=== PATIENT | female | born 1945 | race Caucasian/White ===

== ENCOUNTER 2022-12-31 12:17 | Outpatient (CLI) | payer MEDICARE, BC, SELFPAY | END 2022-12-31 12:18 | disposition home or self-care (01) | LOC: NFLDREF 01-04 10:15 | PROVIDERS: PCP Family Medicine; Referring Provider Family Medicine; Visit Provider Family Medicine | DX: R30.0 Dysuria (principal); N39.0 Urinary tract infection, site not specified | CPT/HCPCS: 87086; 87186 ==

== ENCOUNTER 2024-05-10 10:31 | Outpatient (CLI) | payer MEDICARE, BC, SELFPAY ==
--- OUTSIDE RECORDS SUMMARY | 2024-05-10 23:39 | XMS_ITS | Clinical Summary ---
Author Organization [facility] Address [place], [place] [address] Care Team Providers Care Compositor Apprentice Name Role Phone Andrea Eckert MD Unavailable Nereyda Baldwin MD Unavailable + Trinidad Hughes DO Primary Care Provider [phone] Allergies No known active allergies Medications Medication Sig Dispensed Refills Start Date End Date Status MULTIVITAMIN TABIndications:Routine general medical examination at a health care facility take 1 tablet by oral route once daily with food 0 01/30/2008 Active omega-3 fatty acids-vitamin E (FISH OIL) 1,000 mg Cap Take 1,000 capsules by mouth once daily. 0 10/11/2010 Active Cranberry 400 mg capsule Take by mouth. 0 03/14/2015 Active coenzyme q10 (COQ-10) 100 mg cap Take 1 capsule by mouth once daily. 0 01/16/2016 Active White Petrolatum-Mineral Oil (REFRESH P.M.) 57.3-42.5 % ophthalmic ointment Place 1 Strip into the eye(s). 0 03/17/2018 Active Red Yeast Rice Extract 600 mg capIndications:Pure hypercholesterolemia Take 1 Capsule (600 mg) by mouth once daily. 0 07/24/2021 Active hydrocortisone 1 % creamIndications:Facial dermatitis Apply topically to affected area(s) 2 times daily. 0 01/30/2022 Active scopolamine 1mg over 3 days (TRANSDERM SCOP) patchIndications:Motion sickness, subsequent encounter Apply 1 Patch on dry, clean, hairless skin every 72 hours. 10 Patch 05/09/2023 Active Active Problems Problem Noted Date Diagnosed Date Vitamin D deficiency 10/18/2011 Age-related osteoporosis wit hout current pathological fracture 09/16/2009 Colon polyp 2009 Overview: Colonoscopy 01/2009 polyp repeat in 5 years Colonoscopy 08/2014 diverticulosis repeat in 5 years Colonoscopy 10/2019 incomplete colon due to diverticuli, recommend CT colonography CT colon 10/2019 diverticulosis, recommend repeat CT colon every 5 years ABNORMAL STRESS ECHO 02/10/08 02/12/2008 Overview: Exercise echo w/ severe hypo in anterior distribution w/ EF decreasing from 55%- 45% Later eval was false (+) Pure hypercholesterolemia 01/30/2008 Overview: With high HDL Last lipids 02/03/08: TC 203, TG 56, HDL 85, LDL 107 Resolved Problems Problem Noted Date Diagnosed Date Resolved Date Chest pain, unspecified 02/12/200807/29 Disorder of bone and cartilage, unspecified 01/30/2008 09/16/2009 Overview: osteopenia Enthesopathy of ankle and tarsus, unspecified 08/26/20 07 08/17/2009 Immunizations Name Administration Dates Next Due AMB INFLUENZA IIV3 (AGE 65+ YRS) PF (Flu Clinic Only) 09/02/2019 Amb Influenza, Inact (High-d ose) (Flu Clinic Only) 09/04/2016,08/25/2015 Amb Influenza, Inactivated A IIV4 (Age 65+ Years) Preserv Free 08/15/2020 COVID-19 vaccine ([place] NTreMail 30mcg/0.3mL) PF, MDV 01/17/2021,12/27/2020 DT (Age < 7 years) 05/22/1999 Influenza, High-dose Inactivated 07/26/2014 Influenza, IIV3 (Age >=3 years) 08/11/2012,08/13,09/06/2000 Influenza, Inactivated AIIV4 (Age 65+ Years) Preserv Free 07/24/2021 Influenza, Inactivated IIV3 (Age 65+ Years) Preserv Free 09/01/2018,08/26/2017 Pneumococcal Poly,23-Valent (Pneumovax) 10/28/19 15,11/05/2013 Pneumococcal conj 13-Valent (Prevnar 13) 016 Tdap 08/17/2009 Zoster (Shingrix-RZV, recombinant) 04/01/2019, Zoster (Zostavax-ZVL, live) 01/04/2012 Family History Medical History Relation Name Comments GI Disease Brother 1 Abdirahman cancerous polyp s Coronary artery disease Brother 2 Moreno S/p stenting Cancer-prostate Father d 88 yo from pneumonia Other Father Alzheimer's Heart Disease Maternal Grandfather [place] Other Maternal Grandmother dementi a also TB Other Mother d 64 noncancero us brain tumor Stroke Paternal Grandmother Cancer-breast No Family History Cancer-ovarian No Family History Relation Name Status Comments Brother 1 Abdirahman Brother 2 Moreno Alive Father Maternal Grandfather Maternal Grandmother Mother Paternal Grandmother Social History Tobacco Use Types Packs/Day Years Used Date Smoking Tobacco: Never Smokeless Tobacco: Never Tobacco Cessation:Counseling Given: Yes Alcohol Use Standard Drinks/Week Comments No 0 (1 standard drink = 0.6 oz pur e alcohol) PHQ-2 Answer Date Recorded PHQ-2 TOTAL SCORE 0 02/19/2023 Social Connections Answer Date Recorded Frequency of Communication with Friends and Fami ly Not on file 02/25/2024 Financial Resource Strain Answer Date R ecorded Difficulty of Paying Living Expenses 3 02/19/2023 Difficulty of Paying Living Expenses Not on file 02/19/2023 Food Insecurity Answer Date Recorded Worried About Running Out of Food in the Last Ye ar 1 02/19/2023 Transportation Needs Answer Date Record ed Lack of Transportation (Medical) 1 02/19/2023 Housing Stability Answer Date Recorded Unable to Pay for Housing in the Last Year 1 02/19/2023 Sex and Gender Information Value Date Recorded Sex Assigned at Not on file Gender Identity Not on file Sexual Orientation Not on file Obstetrics History Para Term AB IAB SAB Ectopic Multiple Livin g Live Births 5 5 5 0 0 0 0 0 0 5 Date Outcome GA Total Labor Labor/2nd/3rd Weight Sex Type Anes PTL Cassandra A1 A5 Name Clin Term Term Term Term Term Last Filed Vital Signs Vital Sign Reading Time Taken Comments Blood Pressure 115/75 12/02/2023 10:38 AM COMPUTING ARCHITECT Pulse 98 12/02/2023 10:38 AM COMPUTING ARCHITECT Temperature 36.6 ??C (97.8 ??F) 12/02/2023 10:[address] Respiratory Rate 16 02/12/2008 2:30 PM CDT Oxygen Saturation 97% 12/02/2023 10:38 AM COMPUTING ARCHITECT Inhaled Oxygen Concentration - - Weight 75.1 kg (165 lb 8 oz) 12/02/2023 10:38 AM COMPUTING ARCHITECT Height 163.7 cm (5' 4.45) 02/19/2023 2:05 PM CD T Body Mass Index 28.01 02/19/2023 2:05 PM CDT Plan of Treatment Health Maintenance Due Date Last Done Comments Tetanus booster 08/17/2019 08/17/2009 COVID-19 vaccine series ( season) 2023 01/17/2021, 12/27/2020 BMI (ht and wt on same day) for age 18+ 02/20/2024 02/19/2023, 01/30/2022, 07/24/2021, Additional history exists Depression screening for age 12+ 02/20/2024 02/19/2023, 07/24/2021, 05/10/2021, Additional history exists Medicare Wellness for age 65+ 02/20/2024, 07/24/2021, 03/17/2018, Additional history exists Influenza for age 65+ 06/28/2024 07/24/2021 , 08/15/2020, 09/02/2019, Additional history exists Tdap Completed 08/17/2009 Hepatitis C screening for ag e 18-79 Completed 11/05/2013 Pneumococcal series for age 65+ Completed 03/22/2016, 10/28/2014, 11/05/2013 DEXA/DXA scan for age 65+ Completed 2017, 03/22/2016, 11/06/2013, Additional history exists Zoster (shingles) series for age 50+ Completed 04/01/2019, 12/26/2018, 01/04/2012 CT Colonography for age 45-75 Discontinued 11/04/2019, 11/04/2019 Procedures Procedure Name Priority Date/Time Associated Diagnosis Comments CT ABDOMEN PELVIS COLONOGRAPHY DIAGNOSTIC W Routine 11/04/2019 2:59 PM COMPUTING ARCHITECT History of colon polyps Diverticulosis of large intestine without hemorrhage Procedure and treatment not carried out for other reasons XR DXA BONE DENSITY 2 SITES AXIAL Routine 03/17/2018 1:10 PM CDT Age-related osteoporosis without current pathological fracture ANTI HCV Routine 11/05/2013 9:32 AM COMPUTING ARCHITECT Need for hepatitis C screening test from Last 3 Months or Most Recently Relevant to Health Maintenance Results * CT ABDOMEN PELVIS COLONOGRAPHY DIAGNOSTIC W (11/04/2019 2:59 PM COMPUTING ARCHITECT) Anatomical Region Laterality Modality Abdomen Other 11/04/2019 2:59 PM COMPUTING ARCHITECT Narrative 11/05/2019 8:14 AM COMPUTING ARCHITECT EXAM DATE: ? 11/04/2019 EXAM: CT COLONOGRAPHY LOCATION: [facility] DATE/TIME: 11/04/2019 3:30 PM INDICATION: Surveillance. Personal history of adenomatous polyps. Incomplete colonoscopy due to narrowing of the colon in association with diverticular disease. Colonoscopy reached the sigmoid colon. COMPARISON: Colonoscopy report from earlier today. TECHNIQUE: Prone and supine CT abdomen and pelvis with air insufflation per rectum, with image postprocessing. Oral contrast. Dose reduction techniques were used. CONTRAST: ISOVUE 250 LOT [id number] FINDINGS: COLON: Sigmoid colonic diverticulosis. Otherwise negative. No colonic mass or polyp. No colonic perforation. All segments well seen. C Score: C1 Note: CT colonography is not intended for the detection of diminutive polyps (i.e. polyps less than or equal to 5mm), the presence of which will not likely change person of the patient. ADDITIONAL FINDINGS: Incompletely visualized nodular density in the right lower lobe on the first image. No significant finding in the liver, spleen, pancreas, adrenal glands, and kidneys. Normal caliber abdominal aorta. No pelvic masses. Pessary. IMPRESSION: 1. ??No colonic mass or polyp. 2. ??Incompletely visualized nodular density right lower lobe on the first image of the prone series. Suggest follow-up chest CT in 3 months. DICOM format image data is available to non-affiliated external healthcare facilities or entities on a secure, media-free, reciprocally searchable basis with patient authorization for at least a 12-month period after the study. ?? Procedure Note Abimael Macedo MD - 11/05/2019 EXAM DATE: 11/04/2019 EXAM: CT COLONOGRAPHY LOCATION: [facility] DATE/TIME: 11/04/2019 3:30 PM INDICATION: Surveillance. Personal history of adenomatous polyps.Incomplete colonoscopy due to narrowing of the colon in association withdiverticular disease. Colonoscopy reached the sigmoid colon. COMPARISON: Colonoscopy report from earlier today. TECHNIQUE: Prone and supine CT abdomen and pelvis with air insufflationper rectum, with image postprocessing. Oral contrast. Dose reductiontechniques were used. CONTRAST: ISOVUE 250 LOT [id number] FINDINGS: COLON: Sigmoid colonic diverticulosis. Otherwise negative. No colonic mass orpolyp. No colonic perforation. All segments well seen. C Score: C1 Note: CT colonography is not intended for the detection of diminutivepolyps (i.e. polyps less than or equal to 5mm), the presence of which will notlikely change person of the patient. ADDITIONAL FINDINGS: Incompletely visualized nodular density in the rightlower lobe on the first image. No significant finding in the liver, spleen,pancreas, adrenal glands, and kidneys. Normal caliber abdominal aorta. No pelvicmasses. Pessary. IMPRESSION: 1. No colonic mass or polyp. 2. Incompletely visualized nodular density right lower lobe on the firstimage of the prone series. Suggest follow-up chest CT in 3 months. DICOM format image data is available to non-affiliated externalhealthcare facilities or entities on a secure, media-free, reciprocally searchablebasis with patient authorization for at least a 12-month period after the study. Andrea Eckert MD CT * XR DXA BONE DENSITY 2 SITES AXIAL (03/17/2018 1:10 PM CDT) Anatomical Region Laterality Modality Spine, HIPS, HIPL, HIPR Other Emmanuel Bernal MD DEXA * ANTI HCV [63570.2] (11/05/2013 9:32 AM COMPUTING ARCHITECT) ANTI HCV Non-reacti ve [facility] Blood specimen (specimen) BLOOD SPECIMEN / Unknown 11/05/2013 9:32 AM COMPUTING ARCHITECT 11/05/2013 9:26 AM COMPUTING ARCHITECT Emmanuel Bernal MD SEND OUTS [facility] INTERNAL ZIP [id number] [place] [phone] from Last 3 Months or Most Recently Relevant to Health Maintenance Advance Directives Documents on File Type Date Recorded Patient Cloth Laminating Supervisor Expl anation Healthcare Directive 04/23/2016 10:27 AM A Shane PRIDE, 01/31/2016 * Full Code (Latest Code Status on File) Date Activated Date Inactivated Comments 02/12/2008 8:59 AM 02/12/2008 10:39 PM Care Teams Compositor Apprentice Relationship Specialty Start Date End Date Trinidad Hughes DO [address] [place] [address] PCP - General Family Practice 02/19/23 Andrea Eckert MD [address] [place] [address] Gastroenterology 11/05/13 Nereyda Baldwin MD [address] [place] [address] Dermatology 11/05/13
== END 2024-05-10 10:32 | disposition home or self-care (01) ==
LOC: NFLDREF 23:37
PROVIDERS: PCP Family Medicine; Referring Provider Family Medicine; Visit Provider Nurse Practitioner Family
DX: N30.90 Cystitis, unspecified without hematuria (principal)
CPT/HCPCS: 87086; 87186

== ENCOUNTER 2024-06-15 16:03 | Outpatient (CLI) | payer MEDICARE, BC, SELFPAY ==
--- OUTSIDE RECORDS SUMMARY | 2024-06-16 08:27 | XMS_ITS | Clinical Summary ---
Author Organization [facility] Address [place], [place] [address] Care Team Providers Care Combine Driver Name Role Phone Andrea Eckert MD Unavailable Nereyda Baldwin MD Unavailable + Trinidad Hughes DO Primary Care Provider [phone] Allergies No known active allergies Medications Medication [...] 65+ Years) Preserv Free 08/15/2020 COVID-19 vaccine ([place] [employer] 30mcg/0.3mL) PF, MDV 01/17/2021,12/27/2020 DT (Age < [...] Other Father Alzheimer's Heart Disease Maternal Grandfather [place] Other Maternal Grandmother dementi a also TB [...] Comments Blood Pressure 115/75 12/02/2023 10:38 AM ECOSYSTEM ECOLOGY PROFESSOR Pulse 98 12/02/2023 10:38 AM ECOSYSTEM ECOLOGY PROFESSOR Temperature 36.6 ??C (97.8 ??F) 12/02/2023 10:[address] Respiratory Rate 16 02/12/2008 2:30 PM CDT Oxygen Saturation 97% 12/02/2023 10:38 AM ECOSYSTEM ECOLOGY PROFESSOR Inhaled Oxygen Concentration - - Weight 75.1 kg (165 lb 8 oz) 12/02/2023 10:38 AM ECOSYSTEM ECOLOGY PROFESSOR Height 163.7 cm (5' 4.45) 02/19/2023 2:05 [...] COLONOGRAPHY DIAGNOSTIC W Routine 11/04/2019 2:59 PM ECOSYSTEM ECOLOGY PROFESSOR History of colon polyps Diverticulosis of large intestine without hemorrhage Procedure and treatment not carried out for other reasons XR DXA BONE DENSITY 2 SITES AXIAL Routine 03/17/2018 1:10 PM CDT Age-related osteoporosis without current pathological fracture ANTI HCV Routine 11/05/2013 9:32 AM ECOSYSTEM ECOLOGY PROFESSOR Need for hepatitis C screening test from Last 3 Months or Most Recently Relevant to Health Maintenance Results * CT ABDOMEN PELVIS COLONOGRAPHY DIAGNOSTIC W (11/04/2019 2:59 PM ECOSYSTEM ECOLOGY PROFESSOR) Anatomical Region Laterality Modality Abdomen Other 11/04/2019 2:59 PM ECOSYSTEM ECOLOGY PROFESSOR Narrative 11/05/2019 8:14 AM ECOSYSTEM ECOLOGY PROFESSOR EXAM DATE: ? 11/04/2019 EXAM: CT COLONOGRAPHY LOCATION: [facility] DATE/TIME: 11/04/2019 3:30 PM INDICATION: Surveillance. Personal history of adenomatous polyps. Incomplete colonoscopy due to narrowing of the colon in association with diverticular disease. Colonoscopy reached the sigmoid colon. COMPARISON: Colonoscopy report from earlier today. TECHNIQUE: Prone and supine CT abdomen and pelvis with air insufflation per rectum, with image postprocessing. Oral contrast. Dose reduction techniques were used. CONTRAST: ISOVUE 250 LOT [id number] FINDINGS: COLON: Sigmoid colonic diverticulosis. Otherwise negative. No colonic mass or polyp. No colonic perforation. All segments well seen. C Score: C1 Note: CT colonography is not intended for the detection of diminutive polyps (i.e. polyps less than or equal to 5mm), the presence of which will not likely management nurse rn of the patient. ADDITIONAL FINDINGS: Incompletely visualized [...] EXAM DATE: 11/04/2019 EXAM: CT COLONOGRAPHY LOCATION: [facility] DATE/TIME: 11/04/2019 3:30 PM INDICATION: Surveillance. Personal history of adenomatous polyps.Incomplete colonoscopy due to narrowing of the colon in association withdiverticular disease. Colonoscopy reached the sigmoid colon. COMPARISON: Colonoscopy report from earlier today. TECHNIQUE: Prone and supine CT abdomen and pelvis with air insufflationper rectum, with image postprocessing. Oral contrast. Dose reductiontechniques were used. CONTRAST: ISOVUE 250 LOT [id number] FINDINGS: COLON: Sigmoid colonic diverticulosis. Otherwise negative. No colonic mass orpolyp. No colonic perforation. All segments well seen. C Score: C1 Note: CT colonography is not intended for the detection of diminutivepolyps (i.e. polyps less than or equal to 5mm), the presence of which will notlikely management nurse rn of the patient. ADDITIONAL FINDINGS: Incompletely visualized [...] Emmanuel Bernal MD DEXA * ANTI HCV [[id number]] (11/05/2013 9:32 AM ECOSYSTEM ECOLOGY PROFESSOR) ANTI HCV Non-reacti ve [facility] Blood specimen (specimen) BLOOD SPECIMEN / Unknown 11/05/2013 9:32 AM ECOSYSTEM ECOLOGY PROFESSOR 11/05/2013 9:26 AM ECOSYSTEM ECOLOGY PROFESSOR Emmanuel Bernal MD SEND OUTS [facility] INTERNAL ZIP [phone] [place] [phone] from Last 3 Months or Most Recently Relevant to Health Maintenance Advance Directives Documents on File Type Date Recorded Patient Stone Sawyer Expl anation Healthcare Directive 04/23/2016 10:27 AM A Shane PRIDE, 01/31/2016 * Full Code (Latest Code Status on File) Date Activated Date Inactivated Comments 02/12/2008 8:59 AM 02/12/2008 10:39 PM Care Teams Combine Driver Relationship Specialty Start Date End Date Trinidad Hughes DO [address] [place] [address] PCP - General Family Practice 02/19/23 Andrea Eckert MD [address] [place] [address] Gastroenterology 11/05/13 Nereyda Baldwin MD [address] [place] [address] Dermatology 11/05/13
== END 2024-06-15 16:04 | disposition home or self-care (01) ==
LOC: NFLDREF 06-16 08:25
PROVIDERS: PCP Family Medicine; Referring Provider Family Medicine; Visit Provider Physician Assistant
DX: N39.0 Urinary tract infection, site not specified (principal)
CPT/HCPCS: 87086

== ENCOUNTER 2024-11-06 08:30 | Outpatient (RCR) | payer MEDICARE, BC, SELFPAY ==
--- OUTSIDE RECORDS SUMMARY | 2024-10-30 08:37 | XMS_ITS | Clinical Summary ---
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 0 10/11/20 10 Active Cranberry 400 mg capsule Take by mouth. 0 03/14/20 15 Active coenzyme q10 (COQ-10) 100 mg cap Take 1 capsule by mouth once daily. 0 01/16/20 16 Active White Petrolatum-Mineral Oil (REFRESH P.M.) 57.3-42.5 % ophthalmic ointment Place 1 Strip into the eye(s). 0 03/17/20 18 Active Red Yeast Rice Extract 600 mg capIndications:Pure hypercholesterolemia Take 1 Capsule (600 mg) by mouth once daily. 0 07/24/20 21 Active hydrocortisone 1 % creamIndications:Facial dermatitis Apply topically to affected area(s) 2 times daily. 0 01/31/20 22 Active scopolamine 1mg over 3 days (TRANSDERM SCOP) patchIndications:Motion sickness, subsequent encounter Apply 1 Patch on dry, clean, hairless skin every 72 hours. 10 Patch 05/09/20 23 Active rosuvastatin (CRESTOR) 5 mg tabletIndications:Pure hypercholesterolemia Take 1 Tablet (5 mg) by mouth at bedtime. 90 Tablet 3 08/17/20 24 Active alendronate (FOSAMAX) 70 mg tabletIndications:Age-r elated osteoporosis without current pathological fracture Take 1 Tablet (70 mg) by mouth once a week in the morning. Take on empty stomach with full glass of water. Do not lie down for 1 hr. 12 Tablet 3 09/07/20 24 Active Active Problems Problem Noted Date Diagnosed Date Vitamin D deficiency 10/18/2011 Age-related osteoporosis wit hout current pathological fracture 09/16/2009 Age-related osteoporosis wit hout current pathological fracture 09/16/2009 Overview (08/21/2024): Drug holiday 2017; repeat bone density shows decline in 2023. Fosamax restarted 08/21/2024. Colon polyp 2009 Overview (11/05/2019): Colonoscopy 01/2009 polyp repeat in 5 years Colonoscopy 08/2014 diverticulosis repeat in 5 years Colonoscopy 10/2019 incomplete colon due to diverticuli, recommend CT colonography CT colon 10/2019 diverticulosis, recommend repeat CT colon every 5 years ABNORMAL STRESS ECHO 02/10/08 02/12/2008 Overview (08/17/2009): Exercise echo w/ severe hypo in anterior distribution w/ EF decreasing from 55%- 45% Later eval was false (+) Pure hypercholesterolemia 01/30/2008 Overview (02/12/2008): With high HDL Last lipids 02/03/08: TC 203, TG 56, HDL 85, LDL 107 Resolved Problems Problem Noted Date Diagnosed Date Resolved Date Chest pain, unspecified 02/12/200807/29 Disorder of bone and cartilage, unspecified 01/30/2008 09/16/2009 Overview (01/30/2008): osteopenia Enthesopathy of ankle and tarsus, unspecified 08/26/20 07 08/17/2009 Encounters Date Type Department Care Team Description 08/13/2024 2:00 PM CDT Ancillary Procedure [facility] [address] [facility] [place] [address] 08/13/2024 Travel 08/11/2024 10:00 AM CDT Ancillary Procedure [facility] [address] [place] [place] [address] 08/11/2024 8:55 AM CDT Office Visit [facility] [address] [facility] [place] [address] Trinidad Hughes, Medicare ANNUAL (subsequent) Visit (79 year old female); Knee Pain/problem (L knee pain x6 months) 08/10/2024 Travel from Last 3 Months Immunizations Name Administration Dates Next Due AMB INFLUENZA IIV3 (AGE 65+ YRS) PF (Flu Clinic Only) 09/02/2019 Amb Influenza, Inact (High-d ose) (Flu Clinic Only) 09/04/2016,08/25/2015 Amb Influenza, Inactivated A IIV4 (Age 65+ Years) Preserv Free 08/15/2020 COVID-19 vaccine ([email or web address] 30mcg/0.3mL) PF, MDV 01/17/2021,12/27/2020 DT (Age < 7 years) 05/22/1999 Influenza, High-dose Inactivated 07/26/2014 Influenza, IIV3 (Age >=3 years) 08/11/2012,08/13,09/06/2000 Influenza, Inactivated AIIV4 (Age 65+ Years) Preserv Free 07/24/2021 Influenza, Inactivated IIV3 (Age 65+ Years) Preserv Free 08/11/2024,09/01/2018,08/26/2017 Pneumococcal Poly,23-Valent (Pneumovax) 10/28/19 15,11/05/2013 Pneumococcal conj 13-Valent (Prevnar 13) 016 Tdap 08/17/2009 Zoster (Shingrix-RZV, recombinant) 04/01/2019, Zoster (Zostavax-ZVL, live) 01/04/2012 Family History Medical History Relation Name Comments GI Disease Brother 1 Abdirahman cancerous polyp s Coronary artery disease Brother 2 Moreno S/p stenting Cancer-prostate Father d 88 yo from pneumonia Other Father Alzheimer's Heart Disease Maternal Grandfather [place] Other Maternal Grandmother dementi a also TB [...] drink = 0.6 oz pur e alcohol) [facility] Utilities Answer Date Recorded Do you have trouble paying f or utilities (for example, heat, electricity, water, phone)? Yes 08/10/2024 PHQ-2 Answer Date Recorded PHQ-2 TOTAL SCORE 0 08/11/2024 Social Connections Answer Date Recorded Do you often feel lonely or isolated from those around you? 0 08/10/2024 Financial Resource Strain Answer Date R ecorded Difficulty of Paying Living Expenses 3 08/10/2024 Difficulty of Paying Living Expenses Not on file 08/10/2024 Food Insecurity Answer Date Recorded Do you worry your food will run out before you are able to buy more? 1 08/10/2024 Transportation Needs Answer Date Record ed Does lack of transportation keep you from medica l appointments? 1 08/10/2024 Does lack of transportation keep you from work, meetings or getting things that you need? 1 08/10/2024 Housing Stability Answer Date Recorded What is your housing situation today? 1 08/10/2024 Comments No Sex and Gender Information Value Date Recorded Sex Assigned at Not on file Legal Sex Female 5:26 AM [employer] POL[employer] Gender Identity Not on file Sexual Orientation Not on file Occupation Industry Job Start Date Job End Date retired Not on file Not on file Not on file Obstetrics History Para Term AB IAB SAB Ectopic Multiple Livin g Live Births 5 5 5 0 0 0 0 0 0 5 Date Outcome GA Total Labor Labor/2nd/3rd Weight Sex Type Anes PTL Cassandra A1 A5 Name Clin Term Term Term Term Term Last Filed Vital Signs Vital Sign Reading Time Taken Comments Blood Pressure 132/78 08/11/2024 9:09 AM CDT Pulse 99 08/11/2024 9:09 AM CDT Temperature 36.6 C (97.8 F) 12/02/2023 10:38 AM [employer]ER Respiratory Rate 16 02/12/2008 2:30 PM CDT Oxygen Saturation 98% 08/11/2024 9:09 AM CDT Inhaled Oxygen Concentration - - Weight 74 kg (163 lb 1.6 oz) 08/11/2024 9:09 AM CDT Height 161.5 cm (5' 3.58) 08/11/2024 9:09 AM CD T Body Mass Index 28.36 08/11/2024 9:09 AM CDT Plan of Treatment Health Maintenance Due Date Last Done Comments Tetanus booster 08/17/2019 08/17/2009 RSV vaccine for adults or (1 - 1-dose 75+ series) 2022 COVID-19 vaccine series ( season) 2024 01/17/2021, 12/27/2020 BMI (ht and wt on same day) for age 18+ 08/11/2025 08/11/2024, 02/19/2023, 01/30/2022, Additional history exists Medicare Wellness for age 65+ 08/12/2025, 02/19/2023, 07/24/2021, Additional history exists Depression screening for age 12+ 08/13/2025 08/13/2024, 08/11/2024, 02/19/2023, Additional history exists Tdap Completed 08/17/2009 Hepatitis C screening for ag e 18-79 Completed 11/05/2013 Pneumococcal series for age 50+ Completed 03/22/2016, 10/28/2014, 11/05/2013 Zoster (shingles) series for age 50+ Completed 04/01/2019, 12/26/2018, 01/04/2012 Influenza for age 65+ Completed 08/11/2024 , 07/24/2021, 08/15/2020, Additional history exists DEXA/DXA scan for age 65+ Completed 2023, 03/17/2018, 03/22/2016, Additional history exists Procedures Procedure Name Priority Date/Time Associated Diagnosis Comments XR DXA BONE DENSITY 2 SITES AXIAL Routine 08/13/2024 2:25 PM CDT Age-related osteoporosis without current pathological fracture XR KNEE 3 VIEWS LEFT Routine 08/11/2024 10:07 AM CDT Chronic pain of left knee VITAMIN D 25 (DEFICIENCY) Routine 08/11/2024 9:53 AM CDT Age-related osteoporosis without current pathological fracture Vitamin D deficiency BASIC METABOLIC PANEL Routine 08/11/2024 9:53 AM CDT Age-related osteoporosis without current pathological fracture Medication monitoring encounter LIPID PANEL W REFLEX MEASURED LDL Routine 08/11/2024 9:53 AM CDT Pure hypercholesterolemia ANTI HCV Routine 11/05/2013 9:32 AM [employer]ER Need for hepatitis C screening test from Last 3 Months or Most Recently Relevant to Health Maintenance Results * (ABNORMAL) XR DXA BONE DENSITY 2 SITES AXIAL (08/13/2024 2:25 PM CDT) Anatomical Region Laterality Modality Spine, HIPS, HIPL, HIPR Other Impressions 08/19/2024 4:20 PM CDT Osteoporosis. RECOMMENDATIONS: The National Osteoporosis Foundation recommends pharmacologic treatment for patients with T-scores of -2.5 or less, patients with prior history of fragility fractures, or patients with 10-year probability of greater than 3% at hips or greater than 20% of suffering major osteoporotic fractures. Recommend continued optimization of calcium and vitamin D intake through dietary means and/or supplementation and regular exercise. Consider pharmacologic therapy for osteoporosis. Follow-up bone density reading in 2 years if therapy initiated to assess therapeutic efficacy. Latricia Washington PA-C [employer] [facility] 08/19/2024 Narrative 08/19/2024 4:20 PM CDT For Patients: Results are automatically released to your [employer] ([employer] account once available, in compliance with federal regulations. This means that you may see your results before your provider has had a chance to review them. Please allow 2-3 business days for your provider to comment on the results. XR DXA Bone Mineral Density (BMD) EXAM LOCATION: [facility] [address] [facility] [address] PATIENT NAME: Alla Mejía DATE OF : 1945 EXAM DATE: 08/13/2024 REQUESTING PROVIDER: Trinidad Hughes DO GENDER AT : female HEIGHT: 5' 3.58 (08/11/2024) WEIGHT: 163 lb 1.6 oz (08/11/2024) MENOPAUSAL STATUS: Postmenopausal RACE/ETHNICITY: White RISK FACTORS: Family History of Osteoporosis and White Race CURRENT MEDICATION FOR BONE LOSS: NONE INDICATION: Age-related osteoporosis without current pathological fracture COMPARISON DATE(S): 2018 DXA scans are compared to prior studies for a patient only when the two (or more) studies were performed on the same scanner. It is not possible to compare data generated on one scanner to data from another because there are not standards in DXA equipment. This applies even if the two scanners are made by the same percussion tuner. PROCEDURE: Dual-energy x-ray absorptiometry performed with routine technique. Reporting is completed in the form of a T-score. The T-score represents the standard deviation from peak bone mass based on young healthy adult. A Z-score is used for diagnosis in premenopausal women, and for men under the age of 50. FINDINGS: RESULT LUMBAR SPINE L1 - L4 BMD: 0.898 g/cm2 T-Score: - 2.4 Z-Score: - 0.9 Change from prior in 2018: Increase 6.5%. RESULTS FEMUR Left femoral neck BMD: 0.691 g/cm2 T-Score: - 2.5 Z-Score: - 0.7 Change from prior in 2018: Decrease 9.8%. Right femoral neck BMD: 0.693 g/cm2 T-Score: - 2.5 Z-Score: - 0.6 Change from prior in 2018: Decrease 2.1%. Left hip BMD: 0.771 g/cm2 T-Score: - 1.9 Z-Score: - 0.2 Change from prior in 2018: Decrease 4.9%. Right hip BMD: 0.726 g/cm2 T-Score: - 2.2 Z-Score: - 0.6 Change from prior in 2018: Decrease 2.7%. WHO criteria: Normal: T-score at or above -1 SD Osteopenia: T-score between -1.1 and -2.4 SD Osteoporosis: T-score at or below -2.5 SD us Trinidad Cassandra Shaqra DO DEXA Final Result * XR KNEE 3 VIEWS LEFT (08/11/2024 10:07 AM CDT) Anatomical Region Laterality Modality KNEES, KNEE L Computed Radiogr aphy 08/11/2024 1:43 PM CDT Narrative 08/11/2024 1:43 PM CDT For Patients: As a result of the Cures Act, medical imaging exams and procedure reports are released immediately into your electronic medical record. You may view this report before your referring provider. If you have questions, please contact your health care provider. Indication: Knee pain Technique: Left knee 3 views Comparison: None Findings: Patellofemoral narrowing and spurring. Small joint effusion. Osteopenia. Standing alignment normal. No fracture. Impression: Patellofemoral compartment degenerative joint disease. Dictated by Moreno Kwon MD @ 08/11/2024 1:43:54 PM (Electronically Signed) Procedure Note Moreno Kwon MD - 08/11/2024 For Patients: As a result of the Cures Act, medical imagingexams and procedure reports are released immediately into your electronicmedical record. You may view this report before your referring provider.If you have questions, please contact your health care provider. Indication: Knee pain Technique: Left knee 3 views Comparison: None Findings: Patellofemoral narrowing and spurring. Small joint effusion. Osteopenia.Standing alignment normal. No fracture. Impression: Patellofemoral compartment degenerative joint disease. Dictated by Moreno Kwon MD @ 08/11/2024 1:43:54 PM (Electronically Signed) us Trinidad Cassandra Shaqra DO GENERAL IMAGING Final Result * (ABNORMAL) LIPID PANEL W REFLEX MEASURED LDL (08/11/2024 9:53 AM CDT) CHOLESTEROL, TOTAL 246(H) <200 mg/dL [facility] HDL CHOLESTEROL 89 > OR = 50 mg/dL [facility] TRIGLYCERIDES 97 <150 mg/dL [facility] LDL-CHOLESTEROL 137(H) mg/dL (calc) [facility] Comment: Reference range: <100 Desirable range <100 mg/dL for primary prevention; <70 mg/dL for patients with CHD or diabetic patients with > or = 2 CHD risk factors. LDL-C is now calculated using the Carole calculation, which is a validated novel method providing better accuracy than the Friedewald equation in the estimation of LDL-C. Andrea LEWIS et al. PAULO. 2013;310(19): 3439-8011 (http://education.Viropro/faq/OVY376) CHOL/HDLC RATIO 2.8 <5.0 (calc) [facility] NON HDL CHOLESTEROL 157(H) <130 mg/dL (calc) [facility] Comment: For patients with diabetes plus 1 major ASCVD risk factor, treating to a non-HDL-C goal of <100 mg/dL (LDL-C of <70 mg/dL) is considered a therapeutic option. Blood BLOOD SPECIMEN / Unknown 08/11/2024 9:53 AM CDT 08/11/2024 9:54 AM CDT Narrative [facility] - 08/12/2024 3:52 AM CDT FASTING:NO FASTING: NO Trinidad Hughes DO CHEMISTRY Final Result [employer] [facility] [address] [place] [address], [facility] [address] [place] [address] * VITAMIN D 25 (DEFICIENCY) (08/11/2024 9:53 AM CDT) Pathologist [facility] VITAMIN D,25-OH,TOTAL,IA 60 30 - 100 ng/mL [facility] Comment: Vitamin D Status 25-OH Vitamin D: Deficiency: <20 ng/mL Insufficiency: 20 - 29 ng/mL Optimal: > or = 30 ng/mL For 25-OH Vitamin D testing on patients on D2-supplementation and patients for whom quantitation of D2 and D3 fractions is required, the [facility]) 25-OH VIT D, (D2,D3), LC/MS/MS is recommended: order code 95615 (patients >2yrs). See Note 1 Note 1 For additional information, please refer to http://education.Viropro/faq/HGP818 (This link is being provided for informational/ educational purposes only.) Blood BLOOD SPECIMEN / Unknown 08/11/2024 9:53 AM CDT 08/11/2024 9:54 AM CDT Narrative [facility] - 08/12/2024 4:46 AM CDT FASTING:NO FASTING: NO us Trinidad Trujillo Duybebe DO SEND OUTS Final Result [employer] [facility] [address] [place] [address], [facility] [address] * (ABNORMAL) BASIC METABOLIC PANEL (08/11/2024 9:53 AM CDT) [facility] GLUCOSE 73 65 - 139 mg/dL [facility] Comment: Non-fasting reference interval UREA NITROGEN (BUN) 16 7 - 25 mg/dL [facility] CREATININE 0.72 0.60 - 1.00 mg/dL [facility] EGFR 86 > OR = 60 mL/min/1. 73m2 [facility] BUN/CREATININE RATIO SEE NOTE: 6 - 22 (calc) [facility] Comment: Not Reported: BUN and Creatinine are within reference range. SODIUM 138 135 - 146 mmol/L [facility] POTASSIUM 4.2 3.5 - 5.3 mmol/L [facility] CHLORIDE 100 98 - 110 mmol/L [facility] CARBON DIOXIDE 33(H) 20 - 32 mmol/L [facility] ELECTROLYTE BALANCE 5(L) 7 - 17 mmol/L (calc) [facility] CALCIUM 9.7 8.6 - 10.4 mg/dL [facility] Blood BLOOD SPECIMEN / Unknown 08/11/2024 9:53 AM CDT 08/11/2024 9:54 AM CDT Narrative [facility] - 08/12/2024 3:52 AM CDT FASTING:NO FASTING: NO Trinidad Hughes DO CHEMISTRY Final Result [facility] [address] [place] [address], [facility] [address] [place] [address] * ANTI HCV [30811.2] (11/05/2013 9:32 AM [employer]AC[employer]ER POL[employer]ER) ANTI HCV Non-reacti ve [facility] Blood specimen (specimen) BLOOD SPECIMEN / Unknown 11/05/2013 9:32 AM LAC[employer]ER POLISHER 11/05/2013 9:26 AM [employer]AC[employer]ER POLISHER Emmanuel Bernal MD SEND OUTS Final Re sult Performing Organization Address City/[facility]/ZIP Co de Phone Number [facility] INTERNAL ZIP [id number] [place] [id number] from Last 3 Months or Most Recently Relevant to Health Maintenance Insurance [employer] [place] [employer] MR PB ONLY Advance Directives Documents on File Type Date Recorded 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
== END 2024-12-30 12:40 | disposition home or self-care (01) ==
PROVIDERS: PCP Family Medicine; Visit Provider Family Medicine
DX: M25.562 Pain in left knee (principal); G89.29 Other chronic pain; M25.561 Pain in right knee; M25.662 Stiffness of left knee, not elsewhere classified; M62.81 Muscle weakness (generalized); R26.9 Unspecified abnormalities of gait and mobility; Z51.89 Encounter for other specified aftercare
CPT/HCPCS: 97110; 97140; 97161

== ENCOUNTER 2025-06-18 10:08 | Outpatient (CLI) | payer MEDICARE, BC, SELFPAY | END 2025-06-18 10:09 | disposition home or self-care (01) | LOC: NFLDREF 10:09 | PROVIDERS: PCP Family Medicine; Visit Provider Obstetrics & Gynecology | DX: R39.15 Urgency of urination (principal) | CPT/HCPCS: 87086 ==

== ENCOUNTER 2025-06-25 13:56 | Outpatient (CLI) | payer MEDICARE, BC, SELFPAY | END 2025-06-25 13:57 | disposition home or self-care (01) | LOC: NFLDREF 06-29 07:47 | PROVIDERS: PCP Family Medicine; Referring Provider Family Medicine; Visit Provider Obstetrics & Gynecology | DX: N39.0 Urinary tract infection, site not specified (principal); B96.1 Klebsiella pneumoniae [K. pneumoniae] as the cause of diseases classified elsewhere | CPT/HCPCS: 87086 ==

== ENCOUNTER 2025-07-08 10:09 | Outpatient (CLI) | payer MEDICARE, BC, SELFPAY | END 2025-07-08 10:10 | disposition home or self-care (01) | LOC: NFLDREF 07-13 07:23 | PROVIDERS: PCP Family Medicine; Referring Provider Family Medicine; Visit Provider Obstetrics & Gynecology | DX: R39.15 Urgency of urination (principal) | CPT/HCPCS: 87086 ==